=== PATIENT | female | born 1995 | race Caucasian/White ===

== ENCOUNTER 2017-04-03 06:27 | Inpatient (IN) | payer OTHER ==
[2017-04-03] VITALS (65 sets, daily range): BP systolic 91–144; BP diastolic 44–73; PULSE 69–144; TEMP 97.2–98.2
[~2017-04-03] VITALS: Ht 160 cm; Wt 68.2 kg
[2017-04-03 07:44] LABS: MEAN CELL VOLUME 84 fl (80.0-95.0); MEAN CORPUSCULAR HGB CONC 34 g/dl (33.0-37.0); MEAN PLATELET VOLUME 10.2 fl (7.4-10.4); PLATELET COUNT 360 K/mm3 (130-400); RED BLOOD COUNT 3.79 M/mm3 (4.10-5.30); REDCELL DISTRIBUTION WIDTH-CV 12.4 % (11.5-14.5); WHITE BLOOD COUNT 16.1 K/mm3 (4.8-10.8)
[2017-04-03 07:49] LABS: HEMATOCRIT 31.8 % (35.0-45.0); HEMOGLOBIN 10.7 g/dl (12.0-15.0); MEAN CORPUSCULAR HEMOGLOBIN 28 pg (26.0-32.0)
[2017-04-03 07:50] LABS: ADD PATHOLOGY DIFF REVIEW NO
[2017-04-03 10:16] LABS: BAND 5 % (0-10); BASOPHIL 1 % (0-2); NEUTROPHILS 72 % (42.0-75.2); TOTAL CELLS COUNTED 100
[2017-04-03 10:18] LABS: ANISOCYTOSIS 1+; HYPOCHROMIA 1+; PLATELET ESTIMATE INCREASED (NORMAL)
[2017-04-04] VITALS (7 sets, daily range): BP systolic 99–120; BP diastolic 50–59; PULSE 75–100; TEMP 97.8–98.2
[2017-04-04] MEDS ORDERED: IBU600 MG PO (09:06)
[2017-04-04] MEDS ORDERED: PERCOCET 325 MG1 TA2 PO (09:06)
[2017-04-05 09:45] VITALS: BP 111/61; PULSE 75; TEMP 98
== END 2017-04-05 13:30 | disposition home or self-care (01) | DRG 775 ==
LOC: OB 06:27 → LDR 06:27 → OB 12:09 → LDRO 05-01 09:46 → EDSTATUS 05-01 12:07
PROVIDERS: Obstetrics & Gynecology
PROC: 10E0XZZ Delivery of Products of Conception, External Approach (ICD-10-PCS; principal; 2017-04-03)
PROC: 3E033VJ Introduction of Other Hormone into Peripheral Vein, Percutaneous Approach (ICD-10-PCS; 2017-04-03)
DX: O48.0 Post-term pregnancy (principal); O36.0130 Maternal care for anti-D [Rh] antibodies, third trimester, not applicable or unspecified; O76 Abnormality in fetal heart rate and rhythm complicating labor and delivery; O69.81X0 Labor and delivery complicated by cord around neck, without compression, not applicable or unspecified; Z3A.40 40 weeks gestation of pregnancy; Z37.0 Single live birth
CPT/HCPCS: J2405; J2590; J2791; J7120